=== PATIENT | male | born 1980 | race American Indian/Alaskan Native ===

== ENCOUNTER 2017-06-16 10:16 | Inpatient (IN) | payer OTHER ==
[2017-06-16 10:16] VITALS: BMI 33.6
[2017-06-16] MEDS ORDERED: Sodium Chloride 0.9% 1,000 ML IV ONE (11:14)
--- NOTE | 2017-06-16 11:16 | C.PDOC ---
History Of Present Illness Magda Maxwell is a 36 year old male, with no significant past medical history , who was sent to the emergency department by Dr. Gomez to have his gallbladder removed. Patient states he had blood work and testing done already and just came to go to the OR. He denies any fever, chills or other medical complaints. PMD: None provided. Time Seen by Provider: 06/16/17 10:38 Chief Complaint (Nursing): Abdominal Pain History Per: Patient History/Exam Limitations: no limitations Onset/Duration Of Symptoms: Days Current Symptoms Are (Timing): Still Present Associated Symptoms: denies: Fever, Chills Past Medical History Reviewed: Historical Data, Nursing Documentation, Vital Signs Vital Signs: Last Vital Signs Temp 97.8 F 06/16/17 11:07 Pulse 76 06/16/17 11:07 Resp 18 06/16/17 11:07 BP 130/82 06/16/17 11:07 Pulse Ox 98 06/16/17 11:07 - Medical History PMH: No Chronic Diseases Surgical History: No Surg Hx Family History: States: Unknown Family Hx - Social History Hx Tobacco Use: No Hx Alcohol Use: No Hx Substance Use: No Review Of Systems Constitutional: Negative for: Fever, Chills Physical Exam - Physical Exam Appears: Well, No Acute Distress Skin: Normal Color, Warm, Dry Head: Atraumatic, Normacephalic Eye(s): bilateral: Normal Inspection Neck: Normal ROM, Supple Cardiovascular: Rhythm Regular, No Murmur Respiratory: Normal Breath Sounds, No Wheezing Gastrointestinal/Abdominal: Tenderness (epigastric) Back: Normal Inspection, No CVA Tenderness, No Vertebral Tenderness Extremity: Normal ROM, No Deformity, No Swelling Neurological/Psych: Oriented x3 (alert) ED Course And Treatment O2 Sat by Pulse Oximetry: 98 (RA) Pulse Ox Interpretation: Normal Medical Decision Making Medical Decision Making: Initial Plan: --Sodium Chloride 1,000 ml IV 1,000 mls/hr --admit to hospital Disposition - Disposition - Scribe Statement Amando Flores All medical record entries made by the Scribe were at my direction and personally dictated by me. I have reviewed the chart and agree that the record accurately reflects my personal performance of the history, physical exam, medical decision making, and the department course for this patient. I have also personally directed, reviewed, and agree with the discharge instructions and disposition.
--- NOTE | 2017-06-16 11:24 | C.PDOC ---
History Of Present Illness Magda Maxwell is a 36 year old male, with no significant past medical history , who was sent to the emergency department to have his gallbladder removed by Dr. Gomez. Patient reports he had blood work and testing done already and just came to go to the OR. He denies any fever, chills or other medical complaints. PMD: None provided. Time Seen by Provider: 06/16/17 10:38 Chief Complaint (Nursing): Abdominal Pain History Per: Patient History/Exam Limitations: no limitations Onset/Duration Of Symptoms: Days Location Of Pain/Discomfort: RUQ, Epigastric Radiation Of Pain To:: None Associated Symptoms: denies: Fever, Chills Past Medical History Reviewed: Historical Data, Nursing Documentation, Vital Signs Vital Signs: Last Vital Signs Temp 97.6 F 06/16/17 14:25 Pulse 66 06/16/17 14:40 Resp 15 06/16/17 14:40 BP 140/72 06/16/17 14:40 Pulse Ox 98 06/16/17 15:23 - Medical History PMH: No Chronic Diseases Surgical History: No Surg Hx Family History: States: Unknown Family Hx - Social History Hx Tobacco Use: No Hx Alcohol Use: No Hx Substance Use: No Review Of Systems Constitutional: Negative for: Fever, Chills Gastrointestinal: Positive for: Nausea, Abdominal Pain Physical Exam - Physical Exam Appears: Well, No Acute Distress Skin: Normal Color, Warm, Dry Head: Atraumatic, Normacephalic Eye(s): bilateral: Normal Inspection Neck: Normal ROM, Supple Cardiovascular: Rhythm Regular, No Murmur Respiratory: Normal Breath Sounds, No Wheezing Gastrointestinal/Abdominal: Tenderness (epigastric) Back: Normal Inspection, No CVA Tenderness, No Vertebral Tenderness Extremity: Normal ROM, No Deformity, No Swelling Neurological/Psych: Oriented x3 (alert) ED Course And Treatment O2 Sat by Pulse Oximetry: 98 (RA) Pulse Ox Interpretation: Normal Progress Note: labs done on wednesday at [facility] Reassessment Condition: Unchanged - Physician Consult Information Physician Contacted: Jag Gomez Outcome Of Conversation: SDS Medical Decision Making Medical Decision Making: Initial Plan: --Sodium Chloride 1,000 ml IV 1,000 mls/hr --admit to hospital Disposition Discussed With DrArmen: Jag Gomez Doctor Will See Patient In The: Hospital - Disposition Disposition: HOSPITALIZED Disposition Time: 12:00 Condition: STABLE - POA Present On Arrival: None - Clinical Impression Clinical Impression: Cholecystitis - Scribe Statement Amando Flores All medical record entries made by the Scribe were at my direction and personally dictated by me. I have reviewed the chart and agree that the record accurately reflects my personal performance of the history, physical exam, medical decision making, and the department course for this patient. I have also personally directed, reviewed, and agree with the discharge instructions and disposition. Decision To Admit - Pt Status Changed To: Hospital Disposition Of: SDS- Endo,OR,Cath,IR - . Bed Request Type: Same Day Surgery Admitting Physician: Jag Gomez Patient Diagnosis: Cholecystitis
[2017-06-16] MEDS ORDERED: Lidocaine 1% Inj (20ml) ONE (12:30)
[2017-06-16] MEDS ORDERED: ceFAZolin IV 2 gm in Dextrose 2 GM/50 ML BAG IVPB ONE (12:30)
[2017-06-16] MEDS ORDERED: Propofol 10 mg/ml Inj (20 ML) ONE (12:34)
[2017-06-16] MEDS ORDERED: Midazolam 2 MG/2 ML VIAL ONE (12:34)
[2017-06-16] MEDS ORDERED: Rocuronium 10 mg/ml (5 ml) ONE (12:47)
[2017-06-16] MEDS ORDERED: Succinylcholine Chloride 20 mg/ml Syr (5 ml) IV ONE (12:47)
[2017-06-16] MEDS ORDERED: Neostigmine Methylsulfate 3mg/3ml Syringe IV ONE ×2 (13:33→13:38)
[2017-06-16] MEDS ORDERED: Lactated Ringer's 1,000 ML IV ONE (13:52)
[2017-06-16 17:22] VITALS: RESP 20
--- NOTE | 2017-06-16 21:36 | PCM.RRT ---
SUPPORT ENGINEER Nurses Assessment - Situation Date: 06/16/17 Time SUPPORT ENGINEER was called: 21:10 SUPPORT ENGINEER Responder Arrival Time:: 21:12 I.Reason for SUPPORT ENGINEER - A) Acute Change in Patient: Subjective: Dizziness Plan - Assessment of Findings&Treatment Plan SUPPORT ENGINEER was called in room 357A at 9:10pm for dizziness. Patient attempted to go to the bathroom and on the way to the toilet he felt dizzy. Upon arrival patient was laying in bathroom doorway he was conscious and responsive to all questions. He stated that he did not know what happened but he just felt dizzy and the next thing he knew he was on the floor. Nursing staff had conflicting reports about whether or not the patient fell. CT head was ordered to assess for head trauma. Finger stick on site showed blood sugar of 126. Vital signs BP: 141/70 P:74 RR:20 O2:95%. Patient remained alert and responsive. Security staff assisted in getting him into a wheelchair. He was taken for CT head. The following orders were placed: cbc, cmp, WALLY panel. Nursing staff contacting Dr. Gomez to alert him of the situation.
[2017-06-16] MEDS ORDERED: Enoxaparin 30 mg Syringe SC SCH (22:00)
--- NOTE | 2017-06-16 22:04 | CT ---
EXAM: CT Head Without Intravenous Contrast EXAM DATE/TIME: Exam ordered 06/16/2017 9:16 PM CLINICAL HISTORY: 36 years old, male; Injury or trauma; Fall; Initial encounter; Unconscious TECHNIQUE: Axial computed tomography images of the head/brain without intravenous contrast. All CT scans at this facility use one or more dose reduction techniques, viz.: automated exposure control; ma/kV adjustment per patient size (including targeted exams where dose is matched to indication; i.e. head); or iterative reconstruction technique. COMPARISON: No relevant prior studies available. FINDINGS: Brain: There faint basal ganglia calcifications are present. No hemorrhage. No significant white matter disease. Ventricles: Unremarkable. No ventriculomegaly. Bones/joints: Unremarkable. No acute fracture. Soft tissues: There are tiny calcifications noted within the scalp. These are likely of no clinical significance. Sinuses: Mucosal thickening is noted within the maxillary sinuses bilaterally extending into the ethmoid air cells. . Mastoid air cells: Unremarkable as visualized. No mastoid effusion. IMPRESSION: 1. No acute findings. 2. Chronic sinusitis of the maxillary and ethmoid air cells.
[2017-06-16 22:20] LABS: BASO % 0.5 % (0.0-2.0); EOS % 0.1 % (0.0-4.0); LYMPH # 0.6 K/uL (1.0-4.3); LYMPH % 6.5 % (20.0-40.0); MEAN CELL VOLUME 87.3 fL (80.0-94.0); MEAN CORPUSCULAR HEMOGLOBIN 30.3 pg (27.0-31.0); MEAN CORPUSCULAR HGB CONC 34.8 g/dL (33.0-37.0); MEAN PLATELET VOLUME 9.3 fL (7.2-11.7); MONO # 0.4 K/uL (0.0-0.8); NEUT # 8.5 K/uL (1.8-7.0); NEUT % 88.9 % (50.0-75.0); PLATELET COUNT 143 K/uL (130-400); RBC 4.93 Mil/uL (4.40-5.90); RED CELL DISTRIBUTION WIDTH 13.9 % (11.5-14.5); WHITE BLOOD COUNT 9.6 K/uL (4.8-10.8)
[2017-06-16] MEDS ORDERED: Enoxaparin 40 mg Syringe SC ONE (22:34)
[2017-06-16 22:37] LABS: ALB/GLOB RATIO 1.2 (1.0-2.1); ALBUMIN 3.7 g/dL (3.5-5.0); ALT/SGPT 121 U/L (21-72); AST/SGOT 138 U/L (17-59); BLOOD UREA NITROGEN 15 mg/dL (9-20); CALCIUM 8.6 mg/dl (8.6-10.4); GFR AFRICAN-AMERICAN > 60; GFR NON-AFRICAN AMERICAN > 60
[2017-06-16 22:52] LABS: CK-MB 9.43 ng/mL (0.0-3.38)
[2017-06-16 23:09] LABS: LYMPHOCYTE 7 % (20-40); MONOCYTE 5 % (0-10); NEUTROPHIL 88 % (50-75); PLATELET ESTIMATE NORMAL (NORMAL); TOTAL CELLS COUNTED 100
--- NOTE | 2017-06-16 23:58 | OP ---
PROCEDURE DATE: 06/16/2017 PREOPERATIVE DIAGNOSES: Acute cholecystitis and gallbladder polyps. POSTOPERATIVE DIAGNOSES: Acute cholecystitis and gallbladder polyps with incarcerated umbilical hernia. PROCEDURES PERFORMED: 1. Laparoscopic cholecystectomy. 2. Repair of incarcerated umbilical hernia. SURGEON: Jag Gomez MD ANESTHESIA: General. BLOOD LOSS: 40 mL. POSTOP CONDITION: Stable. INDICATIONS FOR SURGERY: This is a 36-year-old male with gallbladder polyps and biliary colic, admitted for cholecystectomy. GROSS FINDINGS: The gallbladder had evidence of chronic cholecystitis. A large umbilical hernia was encountered upon periumbilical cutdown, which was repaired at the end of the procedure. DESCRIPTION OF THE PROCEDURE: Patient was taken to the operative room, general anesthesia was administered. The abdomen was prepped and draped. Periumbilical cutdown was performed. An umbilical hernia was encountered and the hernia sac was dissected free and a blunt port was inserted into the abdomen. The abdomen was insufflated with CO2. Under direct vision, the remaining ports were placed. Gallbladder was retracted and the cystic duct was carefully dissected free. The gallbladder, cystic duct, and common duct junction were carefully identified. The cystic duct was clipped and divided. Cystic artery was identified, clipped, and divided. The gallbladder was removed from the bed using the cautery. Bleeding in the bed was controlled using the cautery. A medial rent in the liver bed was repaired laparoscopically. The abdomen was irrigated with saline until clear. Next, the periumbilical incision was widened and hernia sac was completely dissected free. Repair was accomplished of the hernia defect using interrupted 0 Prolene sutures. The wound was irrigated with saline. The tissue flap closure was performed with multiple layers of Monocryl, subcuticular Monocryl, and skin clips. Patient tolerated the procedure well. Returned to recovery room in stable condition. Jag Gomez MD
[2017-06-17 08:12] LABS: BASO % 0.2 % (0.0-2.0); EOS % 0.2 % (0.0-4.0); LYMPH # 2.3 K/uL (1.0-4.3); LYMPH % 21.7 % (20.0-40.0); MEAN CELL VOLUME 87.4 fL (80.0-94.0); MEAN CORPUSCULAR HEMOGLOBIN 30.1 pg (27.0-31.0); MEAN CORPUSCULAR HGB CONC 34.5 g/dL (33.0-37.0); MEAN PLATELET VOLUME 9.9 fL (7.2-11.7); MONO # 1.3 K/uL (0.0-0.8); MONO % 12.4 % (0.0-10.0); NEUT # 6.8 K/uL (1.8-7.0); NEUT % 65.5 % (50.0-75.0); NRBC % 0.1 % (0.0-2.0); RBC 4.99 Mil/uL (4.40-5.90); WHITE BLOOD COUNT 10.4 K/uL (4.8-10.8)
[2017-06-17 08:27] LABS: ALB/GLOB RATIO 1.1 (1.0-2.1); ALBUMIN 3.3 g/dL (3.5-5.0); ALT/SGPT 128 U/L (21-72); AST/SGOT 130 U/L (17-59); BLOOD UREA NITROGEN 14 mg/dL (9-20); CALCIUM 8.7 mg/dl (8.6-10.4); GFR AFRICAN-AMERICAN > 60; GFR NON-AFRICAN AMERICAN > 60
[2017-06-17 08:32] LABS: CK-MB 5.63 ng/mL (0.0-3.38)
--- NOTE | 2017-06-17 09:40 | CP.PCM.PN ---
Subjective - Date & Time of Evaluation Date of Evaluation: 06/17/17 Time of Evaluation: 09:34 - Subjective Subjective: PGY [address] Sorenson 36 year old male with past medical history of acid reflux is being seen status post lap tom. Patient was sent into hospital by Dr. Gomez for tom. Patient is seen and examined at bedside. Overnight, pt had episode of syncope. Patient was noted to be in a fib with HR of 80s. Pt states that he lost consciousness and hit head. Denies having any MEMBRENO or bleeding from head. CT of head done overnight was negative for acute bleeds. Patient denies having any MEMBRENO , palpitations, CP, SOB, abd pain, N/V/D/C, F/C. Patient states he is not having any flatulence and has not had BM. PMHx: stated above Sx: Left ACL repair Social: Denies tobacco, EOTH or drug use Meds; Omeprazole 40 mg QD Objective - Vital Signs/Intake and Output Vital Signs (last 24 hours): Temp Pulse Resp BP Pulse Ox 98.9 F 86 20 172/79 H 96 06/17/17 07:05 06/17/17 07:05 06/17/17 07:05 06/17/17 07:05 06/17/17 07:05 Intake and Output: 06/17/17 06/17/17 06:59 18:59 Intake Total 650 Output Total 3350 Balance -2700 - Medications Medications: Current Medications Docusate Sodium (Colace) 100 mg PO BID [facility] Last Admin: 06/16/17 18:45 Dose: 100 mg Enoxaparin Sodium (Lovenox) 40 mg SC DAILY [facility] Sodium Chloride (Sodium Chloride 0.9%) 1,000 mls @ 100 mls/hr IV .Q10H [facility] Ondansetron HCl (Zofran Inj) 4 mg IVP Q6 PRN PRN Reason: Nausea/Vomiting Oxycodone/Acetaminophen (Percocet 5/325 Mg Tab) 2 tab PO Q4H PRN PRN Reason: pain Stop: 06/19/17 13:47 Pantoprazole Sodium (Protonix Inj) 40 mg IVP DAILY [facility] - Labs Labs: 06/17/17 07:56 06/17/17 07:56 - Constitutional Appears: Non-toxic, No Acute Distress - Head Exam Head Exam: ATRAUMATIC - ENT Exam ENT Exam: Mucous Membranes Moist - Respiratory Exam Respiratory Exam: Clear to Ausculation Bilateral. absent: Accessory Muscle Use , Rales, Rhonchi, Wheezes, Respiratory Distress - Cardiovascular Exam Cardiovascular Exam: Irregular Rhythm, +S1, +S2. absent: Diastolic murmur, Gallop, Rubs, Murmur - GI/Abdominal Exam GI & Abdominal Exam: Soft, Tenderness, Normal Bowel Sounds. absent: Distended, Firm, Guarding, Rigid, Organomegaly - Extremities Exam Extremities Exam: absent: Pedal Edema, Tenderness - Neurological Exam Neurological Exam: Alert, Awake, Oriented x3 - Psychiatric Exam Psychiatric exam: Normal Affect, Normal Mood - Skin Skin Exam: Dry, Intact, Normal Color, Warm Assessment and Plan - Assessment and Plan (Free Text) Assessment: 36 year old male with past medical history of acid reflux is s/p lap tom done by Dr. Gomez. Status post laproscopic cholecystectomy - Pain management: Percocet 2 mg q4 prn - Zofran prn for nausea - Incentive spirometer ordered. explained patient how to use and the importance of use Atrial fibrillation - EKG done this morning shows A fib with HR of 77 - Cardiology is consulted. Awaiting recs - Echo ordered - Carotid US ordered - Will check TSH and free T4 Syncope - Likely 2/2 orthostatics vs. episode of a fib - Will check orthostatics vital signs, echo and carotid US - CT of head was negative Rhabdomyolysis - elevated CPK noted from blood work overnight after syncopal episode - Repeat CPK this am is down trending - will start pt on NS 100 cc Prophylaxis - protonix - lovenox Case will be discussed with attending, Dr. Sorenson. All orders and recs per Dr. Sorenson
[2017-06-17] MEDS: Oxycodone/Acetaminophen 5/325 mg Tab PO PRN ×2 (09:58→17:41)
[2017-06-17] MEDS: Enoxaparin 40 mg Syringe SC SCH (10:01)
[2017-06-17] MEDS: Sodium Chloride 0.9% 1,000 ML IV SCH ×2 (11:45→19:50)
--- NOTE | 2017-06-17 12:04 | CP.PCM.CON ---
Past Patient History - Past Medical History & Family History Past Medical History?: Yes - Past Social History Smoking Status: Never Smoked - CARDIAC Hx Cardiac Disorders: No - PULMONARY Hx Respiratory Disorders: No - NEUROLOGICAL Hx Neurological Disorder: No - HEENT Hx HEENT Problems: No - RENAL Hx Chronic Kidney Disease: No - ENDOCRINE/METABOLIC Hx Endocrine Disorders: No - HEMATOLOGICAL/ONCOLOGICAL Hx Blood Disorders: No - INTEGUMENTARY Hx Dermatological Problems: No - MUSCULOSKELETAL/RHEUMATOLOGICAL Hx Musculoskeletal Disorders: No Hx Falls: No - GASTROINTESTINAL Hx Gastrointestinal Disorders: Yes Hx Gastroesophageal Reflux: Yes - GENITOURINARY/GYNECOLOGICAL Hx Genitourinary Disorders: No - PSYCHIATRIC Hx Psychophysiologic Disorder: No Hx Substance Use: No - SURGICAL HISTORY Hx Surgeries: Yes Hx Orthopedic Surgery: Yes (Left knee sx) - ANESTHESIA Hx Anesthesia: Yes Hx Anesthesia Reactions: No Hx Malignant Hyperthermia: No Has any member of the family had a problem w/ anesthesia?: No Meds Allergies/Adverse Reactions: Allergies Allergy/AdvReac Type Severity Reaction Status Date / Time lactose Allergy Intermediate RASH Verified 06/14/17 08:14 nut - unspecified Allergy Intermediate RASH Verified 06/14/17 08:14 - Medications Medications: Current Medications Docusate Sodium (Colace) 100 mg PO BID [facility] Last Admin: 06/17/17 09:57 Dose: 100 mg Enoxaparin Sodium (Lovenox) 40 mg SC DAILY [facility] Last Admin: 06/17/17 10:01 Dose: 40 mg Sodium Chloride (Sodium Chloride 0.9%) 1,000 mls @ 100 mls/hr IV .Q10H [facility] Last Admin: 06/17/17 11:45 Dose: 100 mls/hr Ondansetron HCl (Zofran Inj) 4 mg IVP Q6 PRN PRN Reason: Nausea/Vomiting Oxycodone/Acetaminophen (Percocet 5/325 Mg Tab) 2 tab PO Q4H PRN PRN Reason: pain Stop: 06/19/17 13:47 Last Admin: 06/17/17 09:58 Dose: 2 tab Pantoprazole Sodium (Protonix Inj) 40 mg IVP DAILY [facility] Last Admin: 06/17/17 10:01 Dose: 40 mg Results - Vital Signs Recent Vital Signs: Last Vital Signs Temp 98.9 F 06/17/17 07:05 Pulse 86 06/17/17 07:05 Resp 20 06/17/17 07:05 BP 172/79 H 06/17/17 07:05 Pulse Ox 96 06/17/17 07:05 - Labs Result Diagrams: 06/17/17 07:56 06/17/17 07:56 Labs: Laboratory Results - last 24 hr 06/16/17 06/16/17 06/16/17 21:18 22:14 22:14 WBC 9.6 D RBC 4.93 Hgb 15.0 Hct 43.0 MCV 87.3 MCH 30.3 MCHC 34.8 RDW 13.9 Plt Count 143 MPV 9.3 Neut % (Auto) 88.9 H Lymph % (Auto) 6.5 L [place] % (Auto) 4.0 Eos % (Auto) 0.1 Baso % (Auto) 0.5 Neut # (Auto) 8.5 H Lymph # (Auto) 0.6 L [place] # (Auto) 0.4 Eos # (Auto) 0.0 Baso # (Auto) 0.0 Neutrophils % (Manual) 88 H Lymphocytes % (Manual) 7 L Monocytes % (Manual) 5 Platelet Estimate Normal Sodium 133 Potassium 4.3 Chloride 100 Carbon Dioxide 28 Anion Gap 11 BUN 15 Creatinine 0.9 Est GFR ( Amer) > 60 Est GFR (Non-Af Amer) > 60 POC Glucose (mg/dL) 126 H Random Glucose 138 H Calcium 8.6 Total Bilirubin 0.7 AST 138 H D ALT 121 H D Alkaline Phosphatase 71 Total Creatine Kinase 1016 H CK-MB (Mass) 9.43 H Troponin I < 0.0120 Total Protein 6.7 Albumin 3.7 Globulin 3.0 Albumin/Globulin Ratio 1.2 06/17/17 06/17/17 06/17/17 07:27 07:56 07:56 WBC 10.4 RBC 4.99 Hgb 15.0 Hct 43.6 MCV 87.4 MCH 30.1 MCHC 34.5 RDW 14.0 Plt Count 149 MPV 9.9 Neut % (Auto) 65.5 Lymph % (Auto) 21.7 [place] % (Auto) 12.4 H Eos % (Auto) 0.2 Baso % (Auto) 0.2 Neut # (Auto) 6.8 Lymph # (Auto) 2.3 [place] # (Auto) 1.3 H Eos # (Auto) 0.0 Baso # (Auto) 0.0 Neutrophils % (Manual) Lymphocytes % (Manual) Monocytes % (Manual) Platelet Estimate Sodium 138 Potassium 4.0 Chloride 102 Carbon Dioxide 30 Anion Gap 10 BUN 14 Creatinine 1.0 Est GFR ( Amer) > 60 Est GFR (Non-Af Amer) > 60 POC Glucose (mg/dL) 100 Random Glucose 97 Calcium 8.7 Total Bilirubin 0.9 AST 130 H ALT 128 H Alkaline Phosphatase 66 Total Creatine Kinase 832 H CK-MB (Mass) 5.63 H Troponin I < 0.0120 Total Protein 6.3 Albumin 3.3 L Globulin 3.0 Albumin/Globulin Ratio 1.1
--- NOTE | 2017-06-17 12:04 | CP.PCM.CON ---
History of Present Illness - History of Present Illness History of Present Illness: I was asked to evaluate patient with new atrial fibrillation. full consult to follow. will check echocardiogram given recnet cholecystectomy, will need to assess whether it is safe for anticoagulation Past Patient History - Past Medical History & Family History Past Medical History?: Yes - Past Social History Smoking Status: Never Smoked - CARDIAC Hx Cardiac Disorders: No - PULMONARY Hx Respiratory Disorders: No - NEUROLOGICAL Hx Neurological Disorder: No - HEENT Hx HEENT Problems: No - RENAL Hx Chronic Kidney Disease: No - ENDOCRINE/METABOLIC Hx Endocrine Disorders: No - HEMATOLOGICAL/ONCOLOGICAL Hx Blood Disorders: No - INTEGUMENTARY Hx Dermatological Problems: No - MUSCULOSKELETAL/RHEUMATOLOGICAL Hx Musculoskeletal Disorders: No Hx Falls: No - GASTROINTESTINAL Hx Gastrointestinal Disorders: Yes Hx Gastroesophageal Reflux: Yes - GENITOURINARY/GYNECOLOGICAL Hx Genitourinary Disorders: No - PSYCHIATRIC Hx Psychophysiologic Disorder: No Hx Substance Use: No - SURGICAL HISTORY Hx Surgeries: Yes Hx Orthopedic Surgery: Yes (Left knee sx) - ANESTHESIA Hx Anesthesia: Yes Hx Anesthesia Reactions: No Hx Malignant Hyperthermia: No Has any member of the family had a problem w/ anesthesia?: No Meds Allergies/Adverse Reactions: Allergies Allergy/AdvReac Type Severity Reaction Status Date / Time lactose Allergy Intermediate RASH Verified 06/14/17 08:14 nut - unspecified Allergy Intermediate RASH Verified 06/14/17 08:14 - Medications Medications: Current Medications Docusate Sodium (Colace) 100 mg PO BID [facility] Last Admin: 06/17/17 09:57 Dose: 100 mg Enoxaparin Sodium (Lovenox) 40 mg SC DAILY [facility] Last Admin: 06/17/17 10:01 Dose: 40 mg Sodium Chloride (Sodium Chloride 0.9%) 1,000 mls @ 100 mls/hr IV .Q10H [facility] Last Admin: 06/17/17 11:45 Dose: 100 mls/hr Ondansetron HCl (Zofran Inj) 4 mg IVP Q6 PRN PRN Reason: Nausea/Vomiting Oxycodone/Acetaminophen (Percocet 5/325 Mg Tab) 2 tab PO Q4H PRN PRN Reason: pain Stop: 06/19/17 13:47 Last Admin: 06/17/17 09:58 Dose: 2 tab Pantoprazole Sodium (Protonix Inj) 40 mg IVP DAILY [facility] Last Admin: 06/17/17 10:01 Dose: 40 mg Results - Vital Signs Recent Vital Signs: Last Vital Signs Temp 98.9 F 06/17/17 07:05 Pulse 86 06/17/17 07:05 Resp 20 06/17/17 07:05 BP 172/79 H 06/17/17 07:05 Pulse Ox 96 06/17/17 07:05 - Labs Result Diagrams: 06/17/17 07:56 06/17/17 07:56 Labs: Laboratory Results - last 24 hr 06/16/17 06/16/17 06/16/17 21:18 22:14 22:14 WBC 9.6 D RBC 4.93 Hgb 15.0 Hct 43.0 MCV 87.3 MCH 30.3 MCHC 34.8 RDW 13.9 Plt Count 143 MPV 9.3 Neut % (Auto) 88.9 H Lymph % (Auto) 6.5 L [place] % (Auto) 4.0 Eos % (Auto) 0.1 Baso % (Auto) 0.5 Neut # (Auto) 8.5 H Lymph # (Auto) 0.6 L [place] # (Auto) 0.4 Eos # (Auto) 0.0 Baso # (Auto) 0.0 Neutrophils % (Manual) 88 H Lymphocytes % (Manual) 7 L Monocytes % (Manual) 5 Platelet Estimate Normal Sodium 133 Potassium 4.3 Chloride 100 Carbon Dioxide 28 Anion Gap 11 BUN 15 Creatinine 0.9 Est GFR ( Amer) > 60 Est GFR (Non-Af Amer) > 60 POC Glucose (mg/dL) 126 H Random Glucose 138 H Calcium 8.6 Total Bilirubin 0.7 AST 138 H D ALT 121 H D Alkaline Phosphatase 71 Total Creatine Kinase 1016 H CK-MB (Mass) 9.43 H Troponin I < 0.0120 Total Protein 6.7 Albumin 3.7 Globulin 3.0 Albumin/Globulin Ratio 1.2 06/17/17 06/17/17 06/17/17 07:27 07:56 07:56 WBC 10.4 RBC 4.99 Hgb 15.0 Hct 43.6 MCV 87.4 MCH 30.1 MCHC 34.5 RDW 14.0 Plt Count 149 MPV 9.9 Neut % (Auto) 65.5 Lymph % (Auto) 21.7 Craig % (Auto) 12.4 H Eos % (Auto) 0.2 Baso % (Auto) 0.2 Neut # (Auto) 6.8 Lymph # (Auto) 2.3 Craig # (Auto) 1.3 H Eos # (Auto) 0.0 Baso # (Auto) 0.0 Neutrophils % (Manual) Lymphocytes % (Manual) Monocytes % (Manual) Platelet Estimate Sodium 138 Potassium 4.0 Chloride 102 Carbon Dioxide 30 Anion Gap 10 BUN 14 Creatinine 1.0 Est GFR ( Amer) > 60 Est GFR (Non-Af Amer) > 60 POC Glucose (mg/dL) 100 Random Glucose 97 Calcium 8.7 Total Bilirubin 0.9 AST 130 H ALT 128 H Alkaline Phosphatase 66 Total Creatine Kinase 832 H CK-MB (Mass) 5.63 H Troponin I < 0.0120 Total Protein 6.3 Albumin 3.3 L Globulin 3.0 Albumin/Globulin Ratio 1.1
--- NOTE | 2017-06-17 14:48 | VASCLAB ---
PROCEDURE: HISTORY: Syncope COMPARISON: None available. TECHNIQUE: Grayscale and duplex Doppler evaluation of the cervical carotid and vertebral arteries were performed. The common carotid, carotid bifurcations and cervical Internal Carotid Artery (ICA) and proximal External Carotid Artery (ECA) were evaluated. The vertebral arteries were evaluated for gross patency and flow direction. Report prepared by PEYTON Maloney FINDINGS: RIGHT CAROTID ARTERIES: 1. Common Carotid Artery: No significant focal plaque formation of the right common carotid artery. Maximum Peak Systolic velocity: 120 cm/sec: End-diastolic velocity 14 cm/sec. 2. Carotid Bifurcation: plaque formation. Maximum Peak Systolic velocity: 88 cm/sec: End-diastolic velocity 14 cm/sec. 3. Internal Carotid Artery: Plaque description: 3.1. Proximal Segment: Peak systolic velocity 67 cm/sec: End-diastolic velocity 27 cm/sec - % stenosis 0-15% 3.2. Middle Segment: Peak systolic velocity 75 cm/sec: End-diastolic velocity 23 cm/sec - % stenosis 0-15% 3.3. Distal Segment: Peak systolic velocity 45 cm/sec: End-diastolic velocity 15 cm/sec - % stenosis 0-15% 4. External Carotid Artery: No significant focal plaque formation. Peak systolic velocity 124 cm/sec 5. ICA/CCA Ratio: 1.3 LEFT CAROTID ARTERIES: 1. Common Carotid Artery: No significant focal plaque formation of the left common carotid artery. Maximum Peak Systolic velocity: 127 cm/sec: End-diastolic velocity 16 cm/sec. 2. Carotid Bifurcation: plaque formation. Maximum Peak Systolic velocity: 84 cm/sec: End-diastolic velocity 12 cm/sec. 3. Internal Carotid Artery: Plaque description: 3.1. Proximal Segment: Peak systolic velocity 78 cm/sec: End-diastolic velocity 27 cm/sec - % stenosis 0-15% 3.2. Middle Segment: Peak systolic velocity 89 cm/sec: End-diastolic velocity 34 cm/sec - % stenosis 0-15% 3.3. Distal Segment: Peak systolic velocity 67 cm/sec: End-diastolic velocity 25 cm/sec - % stenosis 0-15% 4. External Carotid Artery: No significant focal plaque formation. Peak systolic velocity 152 cm/sec 5. ICA/CCA Ratio: 1.0 VERTEBRAL ARTERIES: 1. Right Vertebral Artery: The right vertebral artery flow direction is antegrade. 2. Left Vertebral Artery: The left vertebral artery flow direction is antegrade. OTHER FINDINGS: 1. Right Brachial Blood pressure: 150 mmHg. 2. Left Brachial Blood pressure: 150 mmHg. IMPRESSION: RIGHT: Duplex scan does not suggest hemodynamically significant stenosis of the right extracranial carotid arteries. LEFT: Duplex scan does not suggest hemodynamically significant stenosis of the left extracranial carotid arteries.
--- NOTE | 2017-06-17 20:43 | CARD ---
APPROVED REPORT EKG Measurement Heart [id number] <Conclusion> Atrial fibrillation Abnormal ECG
--- NOTE | 2017-06-17 20:47 | PN ---
DATE: 06/17/2017 SUBJECTIVE: Postoperative day #1 of the patient, status post syncopal episode last night, which he was found to be in atrial fibrillation, he is currently in sinus rhythm, resting comfortably in monitored bed. He says no complaints. OBJECTIVE: VITAL SIGNS: His temperature is 98.9, pulse is 86, BP is 172/89. ABDOMEN: Abdominal exam revealed clean dressings and positive bowel sounds. Remainder of physical exam is unremarkable. LABORATORIES: His laboratories include a white blood cell count of 10.4, hemoglobin of 15, and electrolytes within normal limits, as well as liver function tests which revealed only slightly elevated enzymes, which is typical status post laparoscopic cholecystectomy. His total creatine kinase and his CPK-MB are both elevated of 832 and 5.63 respectively. IMPRESSION: My impression is that status post syncopal episode secondary to atrial fibrillation with regards to his laparoscopic cholecystectomy. There is no evidence of bleeding or bowel leak or any complications associated with the surgery. He has been worked up by Dr. Cleveland. From a Cardiology standpoint, he will undergo an echocardiogram. We will keep him in the hospital until he is able to be discharged. Jag Gomez MD
[2017-06-18 00:13] VITALS: O2SAT 95
[2017-06-18] MEDS: Sodium Chloride 0.9% 1,000 ML IV SCH ×3 (02:37→14:56)
[2017-06-18] MEDS: Oxycodone/Acetaminophen 5/325 mg Tab PO PRN ×2 (03:09→13:52)
--- NOTE | 2017-06-18 07:19 | CON ---
DATE: 06/17/2017 HISTORY OF PRESENT ILLNESS: The patient is a 36-year-old man with history of hypertension, admitted to the hospital with chief complaint of gallstone and the patient underwent laparoscopic cholecystectomy. Postop, the patient developed dizziness, cardiac monitoring revealed atrial fibrillation . The patient is taking bedrest. Cardiac enzymes ordered. The patient with history of hypertension, obesity, peptic ulcer, gallstones. PHYSICAL EXAMINATION: GENERAL: The patient is awake, alert, oriented. VITAL SIGNS: Temperature 98, pulse 90. HEENT: Within normal limits. NECK: Supple. CHEST: Symmetrical. HEART: Regular. ABDOMEN: Soft. EXTREMITIES: No edema. ASSESSMENT AND PLAN: The patient is status post laparoscopic cholecystectomy, acute atrial fibrillation. The patient is on bedrest, cardiac enzymes, profile, echocardiogram. Ashley Sorenson MD
[2017-06-18 08:20] LABS: BASO # 0.1 K/uL (0.0-0.2); BASO % 0.7 % (0.0-2.0); EOS # 0.1 K/uL (0.0-0.7); EOS % 0.8 % (0.0-4.0); HEMOGLOBIN 15.3 g/dL (12.0-18.0); LYMPH # 2.3 K/uL (1.0-4.3); LYMPH % 24.4 % (20.0-40.0); MEAN CELL VOLUME 87.9 fL (80.0-94.0); MEAN CORPUSCULAR HEMOGLOBIN 30.7 pg (27.0-31.0); MEAN CORPUSCULAR HGB CONC 34.9 g/dL (33.0-37.0); MEAN PLATELET VOLUME 9.3 fL (7.2-11.7); MONO # 0.8 K/uL (0.0-0.8); MONO % 8.5 % (0.0-10.0); NEUT # 6.3 K/uL (1.8-7.0); NEUT % 65.6 % (50.0-75.0); RBC 4.99 Mil/uL (4.40-5.90); RED CELL DISTRIBUTION WIDTH 13.9 % (11.5-14.5); WHITE BLOOD COUNT 9.6 K/uL (4.8-10.8)
--- NOTE | 2017-06-18 08:27 | CP.PCM.PN ---
Subjective - Date & Time of Evaluation Date of Evaluation: 06/18/17 Time of Evaluation: 08:00 - Subjective Subjective: patient has no chest pain. in sinus rhythm Objective - Vital Signs/Intake and Output Vital Signs (last 24 hours): Temp Pulse Resp BP Pulse Ox 98 F 89 20 108/71 95 06/18/17 00:00 06/18/17 01:00 06/18/17 00:00 06/18/17 00:00 06/18/17 00:00 Intake and Output: 06/18/17 06/18/17 06:59 18:59 Intake Total 250 Output Total 500 Balance -250 - Medications Medications: Current Medications Diltiazem HCl (Cardizem) 60 mg PO Q6 [facility] Last Admin: 06/18/17 05:11 Dose: 60 mg Docusate Sodium (Colace) 100 mg PO BID [facility] Last Admin: 06/17/17 18:48 Dose: 100 mg Enoxaparin Sodium (Lovenox) 40 mg SC DAILY [facility] Last Admin: 06/17/17 10:01 Dose: 40 mg Sodium Chloride (Sodium Chloride 0.9%) 1,000 mls @ 100 mls/hr IV .Q10H [facility] Last Admin: 06/18/17 04:47 Dose: Not Given Ondansetron HCl (Zofran Inj) 4 mg IVP Q6 PRN PRN Reason: Nausea/Vomiting Oxycodone/Acetaminophen (Percocet 5/325 Mg Tab) 2 tab PO Q4H PRN PRN Reason: pain Stop: 06/19/17 13:47 Last Admin: 06/18/17 03:09 Dose: 2 tab Pantoprazole Sodium (Protonix Inj) 40 mg IVP DAILY [facility] Last Admin: 06/17/17 10:01 Dose: 40 mg - Labs Labs: 06/18/17 08:16 06/17/17 07:56 - Constitutional Appears: Non-toxic - Head Exam Head Exam: NORMAL INSPECTION - Eye Exam Eye Exam: Normal appearance - ENT Exam ENT Exam: Mucous Membranes Moist - Neck Exam Neck Exam: Full ROM - Respiratory Exam Respiratory Exam: NORMAL BREATHING PATTERN - Cardiovascular Exam Cardiovascular Exam: REGULAR RHYTHM - GI/Abdominal Exam GI & Abdominal Exam: Normal Bowel Sounds - Rectal Exam Rectal Exam: Deferred - Extremities Exam Extremities Exam: absent: Pedal Edema - Back Exam Back Exam: NORMAL INSPECTION - Neurological Exam Neurological Exam: Alert - Psychiatric Exam Psychiatric exam: Normal Affect Assessment and Plan (1) Atrial fibrillation Assessment & Plan: paroxysmal. currently in sinus rhythm. recommend Cardizem CD 120 mg daily. aspirin 325 mg daily. needs echocardiogram. chaim hodge d/c home today with outpatient follow up. Status: Acute
[2017-06-18 08:32] VITALS: BP 120/75; TEMP 98.2
[2017-06-18 08:37] LABS: ALB/GLOB RATIO 1.1 (1.0-2.1); ALBUMIN 3.8 g/dL (3.5-5.0); ALT/SGPT 176 U/L (21-72); AST/SGOT 130 U/L (17-59); BLOOD UREA NITROGEN 14 mg/dL (9-20); CALCIUM 8.7 mg/dl (8.6-10.4); GFR AFRICAN-AMERICAN > 60; GFR NON-AFRICAN AMERICAN > 60
[2017-06-18] MEDS: Enoxaparin 40 mg Syringe SC SCH (09:44)
--- NOTE | 2017-06-18 09:46 | CP.PCM.PN ---
Subjective - Date & Time of Evaluation Date of Evaluation: 06/18/17 Time of Evaluation: 09:41 - Subjective Subjective: PGY2 progress note for Dr. Sorenson Pt seen and examined at bedside. No acute events overnight. Pt is resting comfortably. denies having any CP, palpitations, abd pain, N/v/D/C. Tolerating diet and is passing gas. No BM yet. 12 point ROS negative except for the above mentioned. Objective - Vital Signs/Intake and Output Vital Signs (last 24 hours): Temp Pulse Resp BP Pulse Ox 98.2 F 96 H 20 120/75 95 06/18/17 07:45 06/18/17 07:45 06/18/17 07:45 06/18/17 07:45 06/18/17 07:45 Intake and Output: 06/18/17 06/18/17 06:59 18:59 Intake Total 250 Output Total 500 Balance -250 - Medications Medications: Current Medications Diltiazem HCl (Cardizem) 60 mg PO Q6 [facility] Last Admin: 06/18/17 05:11 Dose: 60 mg Docusate Sodium (Colace) 100 mg PO BID [facility] Last Admin: 06/17/17 18:48 Dose: 100 mg Enoxaparin Sodium (Lovenox) 40 mg SC DAILY [facility] Last Admin: 06/17/17 10:01 Dose: 40 mg Sodium Chloride (Sodium Chloride 0.9%) 1,000 mls @ 100 mls/hr IV .Q10H [facility] Last Admin: 06/18/17 04:47 Dose: Not Given Ondansetron HCl (Zofran Inj) 4 mg IVP Q6 PRN PRN Reason: Nausea/Vomiting Oxycodone/Acetaminophen (Percocet 5/325 Mg Tab) 2 tab PO Q4H PRN PRN Reason: pain Stop: 06/19/17 13:47 Last Admin: 06/18/17 03:09 Dose: 2 tab Pantoprazole Sodium (Protonix Inj) 40 mg IVP DAILY [facility] Last Admin: 06/17/17 10:01 Dose: 40 mg - Labs Labs: 06/18/17 08:16 06/18/17 08:16 - Constitutional Appears: Non-toxic, No Acute Distress - Head Exam Head Exam: ATRAUMATIC - ENT Exam ENT Exam: Mucous Membranes Moist - Respiratory Exam Respiratory Exam: Clear to Ausculation Bilateral. absent: Accessory Muscle Use , Rhonchi, Wheezes, Respiratory Distress - Cardiovascular Exam Cardiovascular Exam: REGULAR RHYTHM, +S1, +S2. absent: Gallop, Rubs, Murmur - GI/Abdominal Exam GI & Abdominal Exam: Soft, Tenderness (at incision site), Normal Bowel Sounds. absent: Distended, Firm, Guarding, Rigid, Organomegaly - Extremities Exam Extremities Exam: absent: Pedal Edema, Tenderness - Neurological Exam Neurological Exam: Alert, Awake, Oriented x3 - Psychiatric Exam Psychiatric exam: Normal Affect, Normal Mood - Skin Skin Exam: Dry, Intact, Normal Color, Warm Assessment and Plan - Assessment and Plan (Free Text) Assessment: 36 year old male with past medical history of acid reflux is s/p lap tom done by Dr. Gomez. Status post laproscopic cholecystectomy - Pain management: Percocet 2 mg q4 prn - Zofran prn for nausea - Incentive spirometer ordered. explained patient how to use and the importance of use Paroxysmal Atrial fibrillation -Currently in sinur rhythm - Cardiology, Dr. Linotn is consulted. Recommends sending pt on Cardizem 120 mg qd and Aspirin 325 mg po qd. - Echo results show normal EF - Will check TSH and free T4 Syncope - Likely 2/2 orthostatics vs. episode of a fib - Carotid US is negative - Echo and orthostatic vital signs pending - CT of head was negative Rhabdomyolysis - Down trending - will start pt on NS 100 cc Prophylaxis - protonix - lovenox Case will be discussed with attending, Dr. Sorenson. All orders and recs per Dr. Sorenson Patient is stable for discharge home per Dr. Sorenson Patient is to follow up with PMD upon discharge Patient is to follow up with surgeon, Dr. Gomez upon discharge Patient is to follow up with supervisor carbon electrodes, Dr. Linton upon discharge. Patient is sent home with the following new medications: Cardizem 120 mg PO QD # 30 tabs, Aspirin 325 mg PO QD #30 tabs Patient is to continue taking all home medications as prescribed Please return to ED if symptoms return or worsen.
[2017-06-18 13:15] LABS: HEPATITIS B SURFACE AG Negative (NEGATIVE)
--- NOTE | 2017-06-18 13:16 | CARD ---
APPROVED REPORT EXAM: Two-dimensional and M-mode echocardiogram with Doppler and color Doppler. Other Information Quality : [employer] : INDICATION Atrial Fibrillation 2D DIMENSIONS IVSd1.1 (0.7-1.1cm)LVDd4.6 (3.9-5.9cm) PWd1.2 (0.7-1.1cm)LVDs2.9 (2.5-4.0cm) FS (%) 36.8 %LVEF (%)66.7 (>50%) M-Mode DIMENSIONS Left Atrium (MM)3.69 (2.5-4.0cm)Aortic Root3.52 (2.2-3.7cm) Aortic Cusp Exc.2.48 (1.5-2.0cm) Mitral Valve MV E Mjxjyonh42.6cm/sMV A Aywoxpgg15.8cm/sE/A ratio1.2 TDI E/Lateral E'0.0E/Medial E'0.0 Tricuspid Valve TR Peak [id number]/sTR Peak [id number] LEFT VENTRICLE The left ventricle is normal size. There is borderline concentric left ventricular hypertrophy. Left ventricle systolic function is normal. The Ejection Fraction is 65-70%. There is normal LV segmental wall motion. The left ventricular diastolic function is normal. There is no ventricular septal defect visualized. RIGHT VENTRICLE The right ventricle is normal size. The right ventricular systolic function is normal. ATRIA The left atrium is mildly dilated. The right atrium size is normal. AORTIC VALVE The aortic valve is tri-cuspid. The aortic valve is normal in structure. No aortic regurgitation is present. There is no aortic valvular stenosis. MITRAL VALVE The mitral valve is normal in structure. There is no evidence of mitral valve prolapse. There is no mitral valve regurgitation noted. TRICUSPID VALVE The tricuspid valve is normal in structure. There is trace tricuspid regurgitation. Right ventricular systolic pressure is estimated at 30-40 mmHg. There is mild pulmonary hypertension. PULMONIC VALVE The pulmonary valve is normal in structure. There is moderate to severe pulmonic valvular regurgitation. GREAT VESSELS The aortic root is normal in size. The ascending aorta is normal in size. The IVC is normal in size and collapses >50% with inspiration. PERICARDIAL EFFUSION There is no pericardial effusion. <Conclusion> There is borderline concentric left ventricular hypertrophy. Left ventricle systolic function is normal. The Ejection Fraction is 65-70%. The left ventricular diastolic function is normal. Significant pulmonic insufficiency There is mild pulmonary hypertension.
[2017-06-18 13:22] LABS: HEPATITIS A IGM NEGATIVE (NEGATIVE); HEPATITIS B CORE AB NEGATIVE (NEGATIVE)
[2017-06-18 13:33] LABS: HEPATITIS C ANTIBODY NEGATIVE (NEGATIVE)
[2017-06-18 14:53] VITALS: PULSE 95
== END 2017-06-18 16:27 | disposition home or self-care (01) | DRG 418 ==
LOC: C.ER 10:16 → C.SDS 11:32 → C.9S 13:49 → C.3T 16:39 → C.5S 22:58
PROVIDERS: ADMIT Surgery; ATTEND Surgery
PROC: 0WQF0ZZ Repair Abdominal Wall, Open Approach (ICD-10-PCS; 2017-06-16)
PROC: 0FT44ZZ Resection of Gallbladder, Percutaneous Endoscopic Approach (ICD-10-PCS; principal; 2017-06-16 11:45)
DX: K80.12 Calculus of gallbladder with acute and chronic cholecystitis without obstruction (principal); K42.0 Umbilical hernia with obstruction, without gangrene; I48.0 Paroxysmal atrial fibrillation; M62.82 Rhabdomyolysis; I97.89 Other postprocedural complications and disorders of the circulatory system, not elsewhere classified; K82.4 Cholesterolosis of gallbladder; I10 Essential (primary) hypertension; K21.9 Gastro-esophageal reflux disease without esophagitis; E66.9 Obesity, unspecified; Z87.11 Personal history of peptic ulcer disease; Z79.82 Long term (current) use of aspirin